=== PATIENT | female | born 1970 | race African-American/Black ===

== ENCOUNTER 2018-10-22 20:37 | Inpatient (IN) | payer MEDICAID ==
[~2018-10-22] VITALS: Ht 157.5 cm; Wt 63.5 kg
[2018-10-22] MEDS ORDERED: ONDANSETRON HCL 4MG/2ML INJ IV STA (22:43)
[2018-10-22] MEDS ORDERED: FAMOTIDINE 20MG/2ML VIAL IV STA (22:43)
[2018-10-22] MEDS ORDERED: SODIUM CHLORIDE 0.9% 1,000 ML IV ONE (22:43)
[2018-10-22] MEDS ORDERED: MORPHINE SULFATE 4 MG/ML CPJ (NOT FOR IM USE) IV STA (22:43)
[2018-10-22 23:33] LABS: CHLORIDE 99 mEq/L (98-107)
[2018-10-22 23:39] LABS: BASOPHILS % 0.3 % (0.0-2.0); HEMATOCRIT. 41.3 % (36.0-48.0); LYMPHOCYTES % 11.7 % (20.0-50.0); MEAN CORPUSCULAR VOLUME 91.6 fL (81.0-99.0); MEAN PLATELET VOLUME 8.9 fl (7.4-10.4); MONOCYTES % 3.6 % (2.0-8.0); NEUTROPHILS % 83.4 % (40.0-76.0); PLATELET 220 x1000/uL (130-400); RED BLOOD CELL COUNT 4.51 mill/uL (4.2-5.4); RED CELL DISTRIBUTION WIDTH 14.6 % (11.6-14.6)
[2018-10-23] MEDS ORDERED: IOHEXOL-300 100 ML BOTTLE ONE (01:31)
[2018-10-23] MEDS ORDERED: MORPHINE SULFATE 2 MG/ML CPJ (NOT FOR IM USE) IV NR (01:45)
[2018-10-23 03:11] LABS: CLARITY URINE CLEAR (CLEAR); COLOR URINE YELLOW (YELLOW); KETONES URINE NEGATIVE (NEGATIVE); LEUKOCYTE ESTERASE URINE NEGATIVE (NEGATIVE); NITRITE URINE NEGATIVE (NEGATIVE); OCCULT BLOOD URINE NEGATIVE (NEGATIVE); PROTEIN URINE NEGATIVE (NEGATIVE); SPECIFIC GRAVITY URINE 1.055 (1.005-1.030); UROBILINOGEN URINE 0.2 E.U./dL (0.2-1.0)
[2018-10-23] MEDS ORDERED: ENALAPRIL 2.5MG/2ML VIAL 2ML IV ONE (04:15)
[2018-10-23] MEDS ORDERED: HYDROCODONE/ACETAMINOPHEN 5/325MG TABLET PO PRN (08:00)
[2018-10-23] MEDS: DEXT 5%/0.45% NACL 1000ML 1,000 ML IV SCH (08:31)
[2018-10-23] MEDS ORDERED: ONDANSETRON HCL 4MG/2ML INJ IV PRN (09:15)
[2018-10-23] MEDS ORDERED: HYDROMORPHONE HCL/PF 2MG/ML CPJ IV PRN (09:15)
[2018-10-23] MEDS ORDERED: DEXTROSE 50% WATER 50ML SYRINGE IV PRN (09:15)
[2018-10-23] MEDS ORDERED: CLONIDINE 0.1MG TABLET PO PRN (12:33)
[2018-10-23 16:00] VITALS: BP 152/86
[2018-10-23] MEDS ORDERED: FOLIC ACID 1 MG, THIAMINE HCL 100 MG, MVI, ADULT NO.1 10 ML in DEXTROSE 5% WATER 1,000 ML IV NR ×4 (16:00)
[2018-10-23] MEDS: KETOROLAC 30MG/ML VIAL IV PRN (16:17)
[2018-10-23] MEDS: BLOOD SUGAR DIAGNOSTIC STRIP TEST SCH ×2 (17:07→21:00)
[2018-10-23] MEDS: INSULIN LISPRO 100 UNITS/ML SUBCUT SCH ×2 (17:08→21:00)
[2018-10-23] MEDS ORDERED: METF-816 PO (17:24)
[2018-10-23 17:47] VITALS: BP 152/86
[2018-10-23 20:00] VITALS: BP 148/86
[2018-10-23] MEDS: AMLODIPINE 5MG TABLET PO SCH (22:13)
[2018-10-23] MEDS: CHLORDIAZEPOXIDE 25MG CAPSULE PO SCH (22:13)
[2018-10-24] VITALS: BP 140/83
[2018-10-24 04:00] VITALS: BP 144/86
[2018-10-24] MEDS: CHLORDIAZEPOXIDE 25MG CAPSULE PO SCH ×3 (06:46→22:28)
[2018-10-24] MEDS: KETOROLAC 30MG/ML VIAL IV PRN ×2 (06:47→17:55)
[2018-10-24] MEDS: INSULIN LISPRO 100 UNITS/ML SUBCUT SCH ×4 (06:47→21:00)
[2018-10-24] MEDS: BLOOD SUGAR DIAGNOSTIC STRIP TEST SCH ×4 (06:47→21:00)
[2018-10-24 07:03] LABS: BASOPHILS % 0.5 % (0.0-2.0); EOSINOPHILS % 3.3 % (0.0-5.0); HEMATOCRIT. 37.1 % (36.0-48.0); HEMOGLOBIN. 12.4 g/dL (12.0-16.0); LYMPHOCYTES % 11.4 % (20.0-50.0); MEAN CORPUSCULAR HEMOGLOBIN 30.5 pg (28.0-32.0); MEAN CORPUSCULAR VOLUME 91.3 fL (81.0-99.0); MEAN PLATELET VOLUME 8.5 fl (7.4-10.4); MONOCYTES % 3.7 % (2.0-8.0); NEUTROPHILS % 81.1 % (40.0-76.0); PLATELET 168 x1000/uL (130-400); RED BLOOD CELL COUNT 4.07 mill/uL (4.2-5.4); RED CELL DISTRIBUTION WIDTH 14.3 % (11.6-14.6)
[2018-10-24 07:30] LABS: CHLORIDE 96 mEq/L (98-107)
[2018-10-24 07:42] LABS: AMYLASE 170 IU/L (25-115)
[2018-10-24 08:02] VITALS: BP 129/84
[2018-10-24] MEDS: AMLODIPINE 5MG TABLET PO SCH ×2 (08:56→21:00)
[2018-10-24] MEDS: PANTOPRAZOLE SODIUM 40 MG/VIAL IV SCH (08:56)
[2018-10-24] MEDS: DEXT 5%/0.45% NACL 1000ML 1,000 ML IV SCH ×2 (09:08→16:55)
[2018-10-24 09:10] LABS: ABSOLUTE EOSINOPHILS 0.1 x10E3/uL (0.0-0.4); ABSOLUTE MONOCYTES 0.3 x10E3/uL (0.1-0.9); ABSOLUTE NEUTROPHILS 4.9 x10E3/uL (1.4-7.0); BASOPHILS 0 % (Not Estab.); HEMATOCRIT 39.7 % (34.0-46.6); HEMOGLOBIN 13.1 g/dL (11.1-15.9); IMMATURE GRANULOCYTES 0 % (Not Estab.); LYMPHOCYTES 16 % (Not Estab.); MEAN CORPUSCULAR HEMOGLOBIN 30.2 pg (26.6-33.0); MEAN CORPUSCULAR VOLUME 92 fL (79-97); MONOCYTES 5 % (Not Estab.); NEUTROPHILS 77 % (Not Estab.); PLATELETS 224 x10E3/uL (150-379); RBC 4.34 x10E6/uL (3.77-5.28); RED CELL DISTRIBUTION WIDTH 14.3 % (12.3-15.4); WBC 6.3 x10E3/uL (3.4-10.8)
[2018-10-24] MEDS ORDERED: METFORMIN HCL 500MG TABLET PO SCH (11:00)
[2018-10-24 12:00] VITALS: BP 117/79
[2018-10-24 13:10] LABS: % CD 3 POS. LYMPHOCYTES 74.7 % (57.5-86.2); % CD 4 POS. LYMPHOCYTES 18.1 % (30.8-58.5); ABSOLUTE CD 3 747 /uL (622-2402); ABSOLUTE CD 4 HELPER 181 /uL (359-1519); ABSOLUTE CD 8 SUPPRESSOR 540 /uL (109-897); CD4/CD8 RATIO 0.34 (0.92-3.72)
[2018-10-24 16:00] VITALS: BP 141/82
[2018-10-24] MEDS ORDERED: POTASSIUM CHLORIDE 20MEQ TABLET SR PO NR (16:30)
[2018-10-24 20:00] VITALS: BP 108/69
[2018-10-25] VITALS: BP 110/70
[2018-10-25 04:00] VITALS: BP 110/70
[2018-10-25 06:48] LABS: BASOPHILS % 0.2 % (0.0-2.0); EOSINOPHILS % 3.4 % (0.0-5.0); HEMATOCRIT. 34.5 % (36.0-48.0); HEMOGLOBIN. 11.8 g/dL (12.0-16.0); LYMPHOCYTES % 12.4 % (20.0-50.0); MEAN CORPUSCULAR HEMOGLOBIN 31.3 pg (28.0-32.0); MEAN CORPUSCULAR VOLUME 91.7 fL (81.0-99.0); MONOCYTES % 4.5 % (2.0-8.0); NEUTROPHILS % 79.5 % (40.0-76.0); RED BLOOD CELL COUNT 3.76 mill/uL (4.2-5.4); RED CELL DISTRIBUTION WIDTH 13.9 % (11.6-14.6)
[2018-10-25 07:06] LABS: CHLORIDE 100 mEq/L (98-107)
[2018-10-25 07:24] LABS: AMYLASE 112 IU/L (25-115)
[2018-10-25] MEDS: CHLORDIAZEPOXIDE 25MG CAPSULE PO SCH ×2 (07:25→13:00)
[2018-10-25] MEDS: BLOOD SUGAR DIAGNOSTIC STRIP TEST SCH ×2 (07:25→11:30)
[2018-10-25] MEDS: DEXT 5%/0.45% NACL 1000ML 1,000 ML IV SCH (07:26)
[2018-10-25] MEDS: INSULIN LISPRO 100 UNITS/ML SUBCUT SCH ×2 (07:50→12:50)
[2018-10-25 08:00] VITALS: BP 137/86
[2018-10-25] MEDS: PANTOPRAZOLE SODIUM 40 MG/VIAL IV SCH (08:31)
[2018-10-25] MEDS: AMLODIPINE 5MG TABLET PO SCH (08:31)
[2018-10-25 08:54] LABS: PLATELET 150 x1000/uL (130-400)
[2018-10-25 12:00] VITALS: BP 118/88
[2018-10-25] MEDS ORDERED: METFORMIN HCL 500MG TABLET PO NR (12:15)
[2018-10-25 14:45] VITALS: BP 125/79
== END 2018-10-25 15:15 | disposition home or self-care (01) | DRG 282 ==
LOC: ER 20:37 → 6EST 10-23 02:42 → EDBEDREQTM 10-23 02:46 → EDBEDREQ 10-23 02:46 → EDBEDREQSVC 10-23 11:29 → ENRESERV 10-23 11:35
PROVIDERS: ADMIT Internal Medicine; ATTEND Internal Medicine
DX: K85.20 Alcohol induced acute pancreatitis without necrosis or infection (principal); E11.65 Type 2 diabetes mellitus with hyperglycemia; E87.1 Hypo-osmolality and hyponatremia; E78.1 Pure hyperglyceridemia; F10.239 Alcohol dependence with withdrawal, unspecified; F17.200 Nicotine dependence, unspecified, uncomplicated; I10 Essential (primary) hypertension; J45.909 Unspecified asthma, uncomplicated; Z90.710 Acquired absence of both cervix and uterus; Z88.2 Allergy status to sulfonamides; Z90.49 Acquired absence of other specified parts of digestive tract; Z71.6 Tobacco abuse counseling; Z79.4 Long term (current) use of insulin
CPT/HCPCS: 36415; 71045; 74177; 80048; 82150; 82962; 83605; 84478; 84484; 86359; 86360; 96361; 96374; 96375; 99285; C9113; J1170; J1885; J2270; J2405; J3411; J3490; J7030; J7070; Q9967